=== PATIENT | male | born 1970 | race Caucasian/White ===

== ENCOUNTER 2020-02-10 20:45 | Emergency (ER) | payer OTHER ==
[~2020-02-10] VITALS: Ht 172.7 cm; Wt 88.1 kg
[2020-02-10 22:18] VITALS: BP 147/86
--- NOTE | 2020-02-10 22:32 | PHYS DOC ---
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 Patient arrived via EMS. Patient apparently was found at a pool. There he apparently had been drinking. Today I am unable to get any history from him. He reports that he cannot remember anything from today in fact says he cannot remember anything from yesterday as well. However he does know his January he knows it is 2019 and he knows he is in [facility]. Patient also was uncooperative with the neuro exam as well as history reporting that he does not have any pain at this time including shortness of breath, nausea or vomiting or rashes. Patient also denied any headache. Review of Systems: Review of Systems: Constitutional: Denies fever or chills. [] Eyes: Denies change in visual acuity. [] HENT: Denies nasal congestion or sore throat. [] Respiratory: Denies cough or shortness of breath. [] Cardiovascular: Denies chest pain or edema. [] GI: Denies abdominal pain, nausea, vomiting, bloody stools or diarrhea. [] : Denies dysuria. [] Musculoskeletal: Denies back pain or joint pain. [] Integument: Denies rash. [] Neurologic: Denies headache, focal weakness or sensory changes. [] Endocrine: Denies polyuria or polydipsia. [] Lymphatic: Denies swollen glands. [] Psychiatric: Denies depression or anxiety. [] Heart Score: Risk Factors: Risk Factors: DM, Current or recent (<one month) smoker, HTN, HLP, family history of CAD, obesity. Risk Scores: Score 0 - 3: 2.5% MACE over next 6 weeks - Discharge Home Score 4 - 6: 20.3% MACE over next 6 weeks - Admit for Clinical Observation Score 7 - 10: 72.7% MACE over next 6 weeks - Early Invasive Strategies Allergies: Allergies: Allergies Coded Allergies Type Severity Reaction Last Updated Verified No Known Drug Allergies 02/10/20 No Physical Exam: PE: Constitutional: Well developed, well nourished, no acute distress, non-toxic appearance. [] HENT: Normocephalic, atraumatic, bilateral external ears normal, oropharynx moist, no oral exudates, nose normal. [] Eyes: PERRLA, EOMI, conjunctiva normal, no discharge. [] Neck: Normal range of motion, no tenderness, supple, no stridor. [] Cardiovascular: Tachycardia, no murmur, no S3 or S4, no shift of PMI, pulses when added to the dorsalis pedis bilaterally. [] Lungs & Thorax: Bilateral breath sounds clear to auscultation [] Abdomen: Bowel sounds normal, soft, no tenderness, no masses, no pulsatile m asses. [] Skin: Warm, dry, no erythema, no rash. [] Back: No tenderness, no CVA tenderness. [] Extremities: No tenderness, no cyanosis, no clubbing, ROM intact, no edema. [] Neurologic: Alert and oriented X 3, patient with breakthrough weakness, moves all extremities, no facial weakness, otherwise uncooperative with the exam. [] Psychologic: Affect anxious, judgement impaired, mood anxious denies SI HI. [] Current Patient Data: Vital Signs: Vital Signs Date Time Temp Pulse Resp B/P (MAP) Pulse Ox O2 Delivery O2 Flow Rate FiO2 02/10/20 22:18 132 19 98 02/10/20 20:45 97.9 178/102 (127) Room Air 97.9 EKG: EKG: Heart rate 129 bpm, normal sinus rhythm, normal axes, normal intervals, normal ECG [] Radiology/Procedures: Radiology/Procedures: [] Course & Med Decision Making: Course & Med Decision Making Pertinent Labs and Imaging studies reviewed. (See chart for details) 0049-patient was seen and reevaluated. Patient reports that he is now remembering things again. I talked to the nursing staff and they stated to me that he was acting fine prior to my walking and there. They had asked him of question about drugs and after that he seemed to become much more quiet and less cooperative. However now he says he is feeling like he is back to his baseline. He is alert and oriented and has otherwise no other new complaints. At this time I think he is stable for discharge. I discussed reasons to return, treatment plan and need for follow-up. 0213-patient has remained in the emergency department. He has consistently improved in his mental status and is now more oriented. I think at this time he is stable for discharge. [] Dragon Disclaimer: Dragon Disclaimer: This electronic medical record was generated, in whole or in part, using a voice recognition dictation system. Departure Departure Impression: Primary Impression: Polysubstance abuse Additional Impressions: Alcohol intoxication Qualified Codes: F10.920 - Alcohol use, unspecified with intoxication, uncomplicated Mild dehydration Delirium Disposition: HOME, SELF-CARE Condition: IMPROVED Patient Instructions: Alcohol Intoxication, Polysubstance Abuse Additional Instructions: See provide a list of PCPs for follow-up Justicifation of Admission Dx: Justifications for Admission: Justification of Admission Dx: N/A JIM CARIAS MD Feb 10, 2020 22:32
[2020-02-10 22:36] LABS: BASO % 1 % (0-3); EOS # 0.7 x10^3/uL (0.0-0.7); EOS % 7 % (0-3); HEMATOCRIT 43.2 % (39.0-53.0); HEMOGLOBIN 14.7 g/dL (13.0-17.5); LYMPH # 3.2 x10^3/uL (1.0-4.8); LYMPH % 36 % (24-48); MEAN CORPUSCULAR HEMOGLOBIN 32 pg (25-35); MEAN CORPUSCULAR HGB CONC 34 g/dL (31-37); MEAN CORPUSCULAR VOLUME 93 fL (79-100); MONO # 0.7 x10^3/uL (0.0-1.1); MONO % 8 % (0-9); NEUT # 4.3 x10^3/uL (1.8-7.7); NEUT % 48 % (31-73); PLATELET COUNT 297 x10^3/uL (140-400); RED BLOOD COUNT 4.64 x10^6/uL (4.30-5.70); RED CELL DISTRIBUTION WIDTH 12.9 % (11.5-14.5); WHITE BLOOD COUNT 8.8 x10^3/uL (4.0-11.0)
[2020-02-10 22:45] LABS: CALCIUM 9.2 mg/dL (8.5-10.1); CREATININE 1.2 mg/dL (0.7-1.3); GFR 64.4; POTASSIUM 3.1 mmol/L (3.5-5.1)
[2020-02-10 22:50] LABS: ACETAMIN < 2 mcg/ml (10-30); ETHANOL 222 mg/dL (0-10); SALIC < 2.8 mg/dL (2.8-20.0)
[2020-02-10 22:51] LABS: ALBUMIN 4.4 g/dL (3.4-5.0); TOTAL BILIRUBIN 0.2 mg/dL (0.2-1.0)
--- NOTE | 2020-02-10 22:59 | RAD ---
EXAM: CT Head without IV contrast CLINICAL HISTORY: Altered mental status COMPARISON: None. TECHNIQUE: Routine CT of the head without contrast. PQRS compliance statement - One or more of the following individualized dose reduction techniques were utilized for this study: 1. Automated exposure control 2. Adjustment of the mA and/or kV according to patient size 3. Use of iterative reconstruction technique FINDINGS: There is no evidence of hemorrhage, mass or extra-axial fluid collection. Ren-white differentiation is maintained with no evidence of edema. There is no mass effect or shift of the intracranial structures. The ventricles, basilar cisterns and cortical sulci are normal in size and configuration for the patients stated age. The cerebellum and brainstem are unremarkable. The calvarium demonstrates no evidence of fracture or focal lesion. There is normal aeration of the visualized paranasal sinuses and mastoid air cells. The visualized portions of the orbits are normal.l IMPRESSION: No evidence for acute intracranial process. Electronically signed by: Mesfin Camejo MD (02/10/2020 10:56 PM) HARMAN
[2020-02-10] MEDS ORDERED: IV NORMAL SALINE 1000ML BAG 1,000 ML IV ONE (23:00)
[2020-02-11 02:00] LABS: BILIRUBIN,URINE NEGATIVE (NEG); CLARITY,URINE CLEAR; COLOR,URINE YELLOW; NITRITE,URINE NEGATIVE (NEG); PH,URINE 5.5 (<5.0-8.0); PROTEIN,URINE NEGATIVE (NEG-TRACE); UROBILINOGEN,URINE 0.2 mg/dL (0.2 mg/dL)
[2020-02-11 02:06] LABS: BARBITURATES NEG (NEG); BENZODIAZEPINES NEG (NEG); CANNABINOIDS POS (NEG); COCAINE NEG (NEG); METHADONE NEG (NEG); OPIATES NEG (NEG); PHENCYCLIDINE NEG (NEG)
[2020-02-11 02:17] LABS: AMPHETAMINE/METHAMPHETAMINE NEG (NEG)
[2020-02-11 02:19] LABS: BACTERIA,URINE 0 /HPF (0-FEW); HYALINE CASTS, URINE FEW /HPF; RBC,URINE 0 /HPF (0-2); SQUAMOUS EPITHELIAL CELL,UR OCC /LPF; WBC,URINE OCC /HPF (0-4)
--- NOTE | 2020-02-11 14:34 | EKG ---
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
== END 2020-02-11 02:35 | disposition home or self-care (01) ==
LOC: ER 20:45
DX: F10.229 Alcohol dependence with intoxication, unspecified (principal); E86.0 Dehydration; F19.10 Other psychoactive substance abuse, uncomplicated; R41.82 Altered mental status, unspecified; Z90.89 Acquired absence of other organs; Z98.890 Other specified postprocedural states
CPT/HCPCS: 36415; 70450; 80053; 80307; 80329; 81001; 83690; 84484; 85025; 93005; 96360; 99285; G0480; J7030